=== PATIENT | male | born 1930 | race Caucasian/White ===

== ENCOUNTER → 2019-12-29 | Outpatient (CLI) | payer OTHER ==
[~2019-12-29] VITALS: Ht 165.1 cm; Wt 66.5 kg
[~2019-12-29] MED LIST: B12 ACTIVE1000 MCG PO; COLACE100 MG PO; CRESTOR40 MG PO; ELIQUIS2.5 MG PO; FLOMAX0.4 MG PO; MIRTAZAPINE15 M1 PO; PROBIOTIC1 EAC7 PO; PROTONIX40 M2 PO; SENSIPAR 30 MG30 M1 PO; TOPROL XL25 MG PO; VITAMIN D310 MC2 PO; WELLBUTRIN 75 M75 M1 PO
[2019-12-29 10:40] VITALS: BP 183/108
--- NOTE | 2019-12-29 10:47 | NUR ---
[facility] Clinic Assessment: 1. History of Osteoarthritis: DENIES History of Rheumatoid Arthritis: DENIES 2. Height: 5 ft. 5 in. 165.1 cm. Weight: 146.6 lb. oz. 66.497 kg. Patient's BMI: 24.4 3. Vital Signs: BP: 183/108 Pulse: 86 Resp: 16 Temp: 02 Sat: 94 ECG Mon: 4. Pain Intensity: 3 5. Fall Risk: Dizziness: N Needs help standing or walking: N Fallen in the last 3 months: Y Fall risk comments: 6. Patient on Blood Thinner: NATHANAELQUIS 7. History of Hypertension: Y 8. Opioid Therapy greater than 6 weeks: N Opiate Contract Signed: 9. Risk Assessment Tool Provided: 0 10. Functional Assessment Tool: 11. Recreational Drug Use: Never Drug Type: Tobacco Use: Never Smoker Tobacco Type: Amount or Packs/day: How Many Years: Alcohol Use: Yes Frequency: Weekly Quant: 2-3 DRINKS
== END ==
LOC: PAIN 06:50
PROVIDERS: ATTEND Anesthesiology Pain Medicine
DX: M54.9 Dorsalgia, unspecified (principal)